=== PATIENT | male | born 1970 | race Two or more races ===

== ENCOUNTER 2017-03-07 13:04 | Emergency (ER) | payer OTHER ==
--- NOTE | 2017-03-07 13:09 | PDOC ---
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 Patient states cough is been present for the past week. Cough non productive (no hemoptysis) No chest pain No fevers or chills No recent travel No ill contacts PMH: HTN, PSH: Denies Meds: Atenolol, Kdur, Vitamin D3 ALL: NKDA Social: denies alcohol, drugs, cigarettes GENERAL/CONSTITUTIONAL: No: fever, chills, weakness, loss of appetite. HEAD, EYES, EARS, NOSE AND THROAT: No: change in vision, ear pain, discharge, sore throat, throat swelling. CARDIOVASCULAR: No: chest pain, lightheadedness, palpitations, syncope RESPIRATORY: Yes: cough, No: shortness of breath, wheezing, hemoptysis, stridor. GASTROINTESTINAL: No: nausea, vomiting, diarrhea, abdominal pain GENITOURINARY: No: dysuria, hematuria, frequency, urgency, flank pain. MUSCULOSKELETAL: No: back pain, neck pain, joint pain, muscle swelling or pain SKIN: No: lesions, pallor, rash or easy bruising. NEUROLOGIC: No: headache, vertigo, paresthesias, weakness ENDOCRINE: No: unexplained weight gain or loss HEMATOLOGIC/LYMPHATIC: No: anemia, easy bleeding, swelling nodes. GENERAL: The patient is in no acute distress. HEAD: Normal with no signs of trauma. EYES: PERRLA, EOMI, sclera anicteric, conjunctiva clear. ENT: Ears normal, nares patent, oropharynx clear without exudates. Moist mucous membranes. NECK: Normal range of motion, supple without lymphadenopathy, JVD, or masses. LUNGS: Breath sounds equal, clear to auscultation bilaterally. No wheezes, and no crackles. HEART:Regular rate and rhythm, normal S1 and S2 without murmur, rub or gallop. ABDOMEN: Soft, nontender, normoactive bowel sounds. No guarding, no rebound. No masses palpable. EXTREMITIES: Normal range of motion, no edema. No clubbing or cyanosis. No erythema, or tenderness. NEUROLOGICAL: Cranial nerves II through XII grossly intact. Normal speech. No focal neurological deficits. MUSCULOSKELETAL: Back non-tender to palpation, no CVA tenderness SKIN: Warm, Dry, normal turgor, no rashes or lesions noted. Past History - Past Medical History Allergies/Adverse Reactions: Allergies Allergy/AdvReac Type Severity Reaction Status Date / Time No Known Allergies Allergy Verified 03/07/17 13:05 Home Medications: Ambulatory Orders Atenolol [Tenormin -] 50 mg PO DAILY 03/07/17 Atenolol [Tenormin] 50 mg PO DAILY #30 tablet 03/07/17 Azithromycin [Zithromax 250mg Tablets -] 250 mg PO UTDICT #6 tab 03/07/17 Cholecalciferol (Vitamin D3) [Vitamin D3] 50,000 unit PO DAILY #30 capsule 03/07 Cholecalciferol (Vitamin D3) [Vitamin D3] 50,000 unit PO WEEKLY 03/07/17 Potassium Chloride [K-Dur -] 20 meq PO DAILY 03/07/17 Potassium Chloride [K-Dur -] 20 meq PO DAILY #30 tablet.er 03/07/17 HTN: Yes - Immunization History Td Vaccination: Yes (07/08/2012) - Psycho/Social/Smoking Cessation Hx Anxiety: No Suicidal Ideation: No Smoking Status: No Smoking History: Never smoked Number of Cigarettes Smoked Daily: 0 Hx Alcohol Use: No Drug/Substance Use Hx: No Substance Use Type: None Hx Substance Use Treatment: No Medical Decision Making - Medical Decision Making 03/07/17 14:11 Lungs clear Pt is not immunosuppressed CXR 03/07/17 14:18 CXR: negative Will discharge to home Will give Azithromycin Pt asked me to refil his home medications *DC/Admit/Observation/Transfer Diagnosis at time of Disposition: Cough - Discharge Dispostion Disposition: HOME Condition at time of disposition: Stable Admit: No - Prescriptions Prescriptions: Potassium Chloride [K-Dur -] 20 meq PO DAILY #30 tablet.er Atenolol [Tenormin] 50 mg PO DAILY #30 tablet Cholecalciferol (Vitamin D3) [Vitamin D3] 50,000 unit PO DAILY #30 capsule Azithromycin [Zithromax 250mg Tablets -] 250 mg PO UTDICT #6 tab - Patient Instructions Printed Discharge Instructions: DI for Viral Upper Respiratory Infection -- Adult Additional Instructions: Thank you for coming in to the ER today Please take antibiotics as prescribed Return to the ER or any fevers or chills, any shortness of breath, any chest pain, any other concerns or complaints - Post Discharge Activity Work/School Note: Back to Work
[2017-03-07 13:12] VITALS: BP 141/100; PULSE 98; TEMP 99.4; BMI 25.8
== END 2017-03-07 14:27 | disposition home or self-care (01) ==
LOC: FER 13:04
DX: R05 Cough (principal); I10 Essential (primary) hypertension; Z85.89 Personal history of malignant neoplasm of other organs and systems
CPT/HCPCS: 71020-TC; 99282-25

== ENCOUNTER 2018-12-17 16:40 | Emergency (ER) | payer OTHER ==
[2018-12-17 16:53] VITALS: BP 130/85; TEMP 98.9; BMI 27.3
--- NOTE | 2018-12-17 17:05 | PDOC ---
History of Present Illness - History of Present Illness Initial Comments: 12/17/18 17:06 The patient is a 48 year old male with a past medical history of nasopharyngeal carcinoma in remission, borderline hypertension, and hyperlipidemia who presents to the emergency department for evaluation of worsening cough and body aches since Sunday. The patient reports worsening productive cough with clear sputum since Sunday. Patient reports intermittent episodes of body aches and lethargy since Sunday. He reports associated symptoms of subjective fever/chills , body aches, and palpitations only upon coughing. Patient is a registered nurse at [employer]. The patient denies chest pain, shortness of breath, wheezing,headache, and dizziness. Denies nausea, vomiting, constipation, and diarrhea. Allergies: No known drug allergies Social history: No reported cigarette, alcohol, or drug use. Surgical History: cataract with iol PCP: Dr. Familia Leigh <Bill Sam - Last Filed: 12/17/18 17:06> - General History Source: Patient Exam Limitations: No Limitations <Capo Holland - Last Filed: 12/17/18 18:04> - General Chief Complaint: Respiratory Stated Complaint: COUGH & COLD SX Time Seen by Provider: 12/17/18 16:41 Past History <Bill Sam - Last Filed: 12/17/18 17:06> - Past Medical History Cancer: Yes (NASOPAHRENGEAL) HTN: Yes - Immunization History Td Vaccination: Yes (07/08/2012) - Suicide/Smoking/Psychosocial Hx Smoking Status: No Smoking History: Never smoked Have you smoked in the past 12 months: No Number of Cigarettes Smoked Daily: 0 Hx Alcohol Use: No Drug/Substance Use Hx: No Substance Use Type: None Hx Substance Use Treatment: No <Capo Holland - Last Filed: 12/17/18 18:04> - Past Medical History Allergies/Adverse Reactions: Allergies Allergy/AdvReac Type Severity Reaction Status Date / Time No Known Allergies Allergy Verified 03/07/17 13:05 Home Medications: Ambulatory Orders Metoprolol Tartrate [Lopressor] 50 mg PO DAILY 12/17/18 Oseltamivir Phosphate [Tamiflu] 75 mg PO BID #10 capsule 12/17/18 Review of Systems - Review of Systems Comments:: GENERAL/CONSTITUTIONAL: (+)Subjective fever. (+)chills. No weakness. HEAD, EYES, EARS, NOSE AND THROAT: No change in vision. No ear pain or discharge. No sore throat. CARDIOVASCULAR: (+)Palpitations. No chest pain or shortness of breath. RESPIRATORY: (+)productive cough. No wheezing, or hemoptysis. GASTROINTESTINAL: No nausea, vomiting, diarrhea or constipation. GENITOURINARY: No dysuria, frequency, or change in urination. MUSCULOSKELETAL: (+)body aches. No joint or muscle swelling or pain. No neck or back pain. SKIN: No rash NEUROLOGIC: No headache, vertigo, loss of consciousness, or change in strength/ sensation. ENDOCRINE: No increased thirst. No abnormal weight change. HEMATOLOGIC/LYMPHATIC: No anemia, easy bleeding, or history of blood clots. ALLERGIC/IMMUNOLOGIC: No hives or skin allergy. <Bill Sam - Last Filed: 12/17/18 17:06> *Physical Exam - Vital Signs Last Vital Signs Temp Pulse Resp BP Pulse Ox 98.9 F 112 H 20 130/85 98 12/17/18 16:40 12/17/18 16:40 12/17/18 16:40 12/17/18 16:40 12/17/18 16:40 - Physical Exam Comments: GENERAL: Awake, alert, and fully oriented, in no acute distress HEAD: No signs of trauma EYES: PERRLA, EOMI, sclera anicteric, conjunctiva clear NECK: Normal ROM, supple, no JVD, or masses LUNGS: Breath sounds equal, clear to auscultation bilaterally. No wheezes, and no crackles HEART: Regular rate and rhythm, normal S1 and S2, no murmurs, rubs or gallops EXTREMITIES: Normal range of motion, no edema. No clubbing or cyanosis. No cords, erythema, or tenderness NEUROLOGICAL: Cranial nerves II through XII grossly intact. Normal speech, normal gait SKIN: Warm, Dry, normal turgor, no rashes or lesions noted. <Bill Sam - Last Filed: 12/17/18 17:06> Moderate Sedation - Procedure Monitoring Vital Signs: Procedure Monitoring Vital Signs Temperature 98.9 F 12/17/18 16:40 Pulse Rate 112 H 12/17/18 16:40 Respiratory Rate 20 12/17/18 16:40 Blood Pressure 130/85 12/17/18 16:40 O2 Sat by Pulse Oximetry (%) 98 12/17/18 16:40 <FlacoBill - Last Filed: 12/17/18 17:06> Heart Score/ECG Review #1 ECG reviewed & interpreted by me at: 17:00 12/17/18 17:05 NSR 96, no std/kimi, TWI III, normal axis, normal intervals, QTC 424 msec. normal EKG <Capo Holland - Last Filed: 12/17/18 18:04> ED Treatment Course - LABORATORY CBC & Chemistry Diagram: 12/17/18 17:10 12/17/18 17:10 <Capo Holland - Last Filed: 12/17/18 18:04> Medical Decision Making - Medical Decision Making 12/17/18 16:52 A portion of this note was written by my scribe, under my supervision. 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 Pt endorses cough, mild productive sputum, occasional chills, but no fevers. Has reported general malaise. 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 May have had sick contacts. Denies chest pain. Pt concerned for potential influenza. Also reports incidentally of intermittent palpitations for some times, but declines chest pain palpitations now. Will need to r/o influenza. Differential includes viral syndrome. No need for chest xray at this time given lung sounds clear. Will however send labs including TSH and ECG for intermittent palpitations and have patient referred to a display artist. 12/17/18 18:04 CBC, BMP 12/17/18 17:10 12/17/18 17:10 CMP Sodium 137 mmol/L (136-145) 12/17/18 17:10 Potassium 3.6 mmol/L (3.5-5.1) 12/17/18 17:10 Chloride 102 mmol/L (98-107) 12/17/18 17:10 Carbon Dioxide 27 mmol/L (21-32) 12/17/18 17:10 Anion Gap 8 MMOL/L (8-16) 12/17/18 17:10 BUN 11 mg/dl (7-18) 12/17/18 17:10 Creatinine 0.9 mg/dl (0.55-1.3) 12/17/18 17:10 Creat Clearance w eGFR > 60 (>60) 12/17/18 17:10 Random Glucose 148 mg/dl (74-106) H 12/17/18 17:10 Calcium 8.4 mg/dl (8.5-10) L 12/17/18 17:10 Total Bilirubin 0.5 mg/dl (0.2-1) 12/17/18 17:10 AST 29 U/L (15-37) 12/17/18 17:10 ALT 41 U/L (13-61) 12/17/18 17:10 Alkaline Phosphatase 89 U/L (45-117) 12/17/18 17:10 Total Protein 6.6 g/dl (6.4-8.2) 12/17/18 17:10 Albumin 3.6 g/dl (3.4-5.0) 12/17/18 17:10 Influenza swab pending. However, will have patient call back for the influenza and TSh results. <Capo Holland - Last Filed: 12/17/18 18:04> *DC/Admit/Observation/Transfer - Attestations Scribe Attestion: Documentation prepared by Bill Sam, acting as medical assistant for Capo Holland MD. <Bill Sam - Last Filed: 12/17/18 17:06> - Discharge Dispostion Decision to Admit order: No <Capo Holland - Last Filed: 12/17/18 18:04> Diagnosis at time of Disposition: Cough - Discharge Dispostion Condition at time of disposition: Stable - Prescriptions Prescriptions: Oseltamivir Phosphate [Tamiflu] 75 mg PO BID #10 capsule - Referrals Referrals: Familia Leigh MD [Primary Care Provider] - Timothy Orozco MD [Staff Physician] - - Patient Instructions Printed Discharge Instructions: DI for Cough -- Adult, DI for Palpitations Additional Instructions: Please call back to the ER for the results of your influenza and TSH. Call at [phone]. If your influenza is positive, please start taking the tamiflu. Otherwise, drink plenty of fluids and rest. For your intermittent palpitations, please make an appointment with cardiology. - Post Discharge Activity
[2018-12-17 17:32] LABS: HEMOGLOBIN 12.9 GM/dl (11.7-16.9); MCH 26.9 pg (25.7-33.7); MCHC 32.3 g/dl (32.0-35.9); MEAN CELL VOLUME 83.3 fl (80-96); MEAN PLT VOLUME 7.6 fl (7.5-11.1); PLATELET COUNT 199 K/MM3 (134-434); RBC 4.81 M/mm3 (4.00-5.60); RDW 12.6 % (11.9-15.9); WHITE BLOOD COUNT 3.6 K/mm3 (4.0-10.8)
[2018-12-17 17:47] LABS: ALBUMIN 3.6 g/dl (3.4-5.0); ALK PHOS 89 U/L (45-117); ANION GAP 8 MMOL/L (8-16); BILIRUBIN,TOTAL 0.5 mg/dl (0.2-1); BLOOD UREA NITROGEN 11 mg/dl (7-18); CALCIUM 8.4 mg/dl (8.5-10); CHLORIDE 102 mmol/L (98-107); CO2 27 mmol/L (21-32); CREATININE 0.9 mg/dl (0.55-1.3); GLUCOSE,RANDOM 148 mg/dl (74-106); POTASSIUM 3.6 mmol/L (3.5-5.1); SGOT/AST 29 U/L (15-37); SGPT/ALT 41 U/L (13-61); SODIUM 137 mmol/L (136-145); TOT PROT 6.6 g/dl (6.4-8.2)
[2018-12-17 18:35] VITALS: PULSE 93
[2018-12-17 19:18] LABS: PLATELET ESTIMATE ADEQUATE
--- NOTE | 2018-12-18 11:36 | EKG ---
Test Reason : Blood Pressure : / mmHG Vent. Rate : 096 BPM Atrial Rate : 096 BPM P-R Int : 152 ms QRS Dur : 088 ms QT Int : 336 ms P-R-T Axes : 024 058 005 degrees QTc Int : 424 ms NORMAL SINUS RHYTHM NORMAL ECG NO PREVIOUS ECGS AVAILABLE Confirmed by ZORAIDA SANCHES MD ([id number]) on 12/18/2018 11:36:09 AM Referred By: DR TSE Confirmed By:ZORAIDA SANCHES MD
== END 2018-12-17 18:10 | disposition home or self-care (01) ==
LOC: FER 16:40
DX: R05 Cough (principal); I10 Essential (primary) hypertension; E78.5 Hyperlipidemia, unspecified; Z85.818 Personal history of malignant neoplasm of other sites of lip, oral cavity, and pharynx
CPT/HCPCS: 36415; 80053; 84443; 85025; 87804; 93005; 99283-25

== ENCOUNTER 2019-08-25 13:33 | Emergency (ER) | payer OTHER ==
[2019-08-25 14:04] VITALS: TEMP 97.8; BMI 25.8
[2019-08-25] MEDS ORDERED: IBUPROFEN 400 MG TABLET (FP) PO ONE ×2 (14:29→14:36)
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
[2019-08-25 15:04] VITALS: BP 146/104; PULSE 82
== END 2019-08-25 15:05 | disposition home or self-care (01) ==
LOC: FER 13:33
DX: S70.02XA Contusion of left hip, initial encounter (principal); V43.52XA Car driver injured in collision with other type car in traffic accident, initial encounter; Y93.89 Activity, other specified; Y92.410 Unspecified street and highway as the place of occurrence of the external cause; I10 Essential (primary) hypertension; E78.00 Pure hypercholesterolemia, unspecified; J45.909 Unspecified asthma, uncomplicated; Z85.89 Personal history of malignant neoplasm of other organs and systems
CPT/HCPCS: 71046-TC-FY; 73523-TC-FY; 99284-25

== ENCOUNTER 2020-10-21 10:54 | Emergency (ER) | payer OTHER ==
[2020-10-21 11:12] VITALS: TEMP 98.8; BMI 25.8
[2020-10-21] MEDS ORDERED: METOCLOPRAMIDE HCL INJECTION 10 MG/2 ML VIAL IVPUSH ONE (11:26)
[2020-10-21] MEDS ORDERED: ACETAMINOPHEN 1000 MG/100 ML VIAL (NON FORMULARY) IVPB ONE (11:26)
[2020-10-21] MEDS ORDERED: METOCLOPRAMIDE HCL INJECTION 10 MG/2 ML VIAL ONE (11:33)
[2020-10-21] MEDS ORDERED: ACETAMINOPHEN INJECTION 100 ML IVPB ONE (11:33)
[2020-10-21 12:05] LABS: BASO % 1.4 % (0-2.0); EOS % 1.2 % (0-4.5); HEMATOCRIT 46.6 % (35.4-49); HEMOGLOBIN 14.9 GM/dl (11.7-16.9); LYMPH % 24.9 % (8-40); MCH 26.9 pg (25.7-33.7); MCHC 31.9 g/dl (32.0-35.9); MEAN CELL VOLUME 84.4 fl (80-96); MEAN PLT VOLUME 7.4 fl (7.5-11.1); MONO % 8.1 % (3.8-10.2); NEUT % 64.4 % (42.8-82.8); PLATELET COUNT 265 K/MM3 (134-434); RBC 5.52 M/mm3 (4.00-5.60); RDW 12.5 % (11.9-15.9); WHITE BLOOD COUNT 4.3 K/mm3 (4.0-10.8)
[2020-10-21 12:26] LABS: EPITHELIAL CELLS RARE /hpf
[2020-10-21 12:31] LABS: ALBUMIN 4.3 g/dl (3.4-5.0); BILIRUBIN,TOTAL 0.8 mg/dl (0.2-1); CALCIUM 8.8 mg/dl (8.5-10); CREATININE 0.9 mg/dl (0.55-1.3); POTASSIUM 3.8 mmol/L (3.5-5.1); TOT PROT 7.7 g/dl (6.4-8.2)
[2020-10-21 13:12] VITALS: BP 145/90; PULSE 75
== END 2020-10-21 13:27 | disposition home or self-care (01) ==
LOC: FER 10:54
PROC: 3E033NZ Introduction of Analgesics, Hypnotics, Sedatives into Peripheral Vein, Percutaneous Approach (ICD-10-PCS; principal; 2020-10-21)
PROC: 3E033GC Introduction of Other Therapeutic Substance into Peripheral Vein, Percutaneous Approach (ICD-10-PCS; 2020-10-21)
DX: R00.2 Palpitations (principal); R51.9 Headache, unspecified
CPT/HCPCS: 36415; 70450-TC; 71046-TC-FY; 80053; 81003; 81015; 84484; 85025; 93005; 99285-25; J0131

== ENCOUNTER 2021-09-05 15:50 | Emergency (ER) | payer BC, OTHER ==
[2021-09-05 15:59] VITALS: TEMP 99.3; BMI 26.3
[2021-09-05] MEDS ORDERED: SODIUM CHLORIDE 1,000 ML IV STA (16:08)
[2021-09-05 16:35] LABS: BASO % 3.3 % (0-2.0); EOS % 0.3 % (0-4.5); HEMATOCRIT 44.2 % (35.4-49); HEMOGLOBIN 14.8 GM/dl (11.7-16.9); LYMPH % 14.9 % (8-40); MCH 27.2 pg (25.7-33.7); MCHC 33.5 g/dl (32.0-35.9); MEAN CELL VOLUME 81.2 fl (80-96); MEAN PLT VOLUME 7.4 fl (7.5-11.1); MONO % 6.4 % (3.8-10.2); NEUT % 75.1 % (42.8-82.8); PLATELET COUNT 300 10^3/uL (134-434); RBC 5.45 M/mm3 (4.00-5.60); RDW 11.9 % (11.9-15.9); WHITE BLOOD COUNT 4.8 K/mm3 (4.0-10.8)
[2021-09-05 16:41] LABS: ALBUMIN 4.3 g/dl (3.4-5.0); BILIRUBIN,TOTAL 0.8 mg/dl (0.2-1); CALCIUM 8.9 mg/dl (8.5-10); CREATININE 0.8 mg/dl (0.55-1.3); TOT PROT 8.2 g/dl (6.4-8.2)
[2021-09-05 18:57] VITALS: BP 159/109; PULSE 97
== END 2021-09-05 20:50 | disposition home or self-care (01) ==
LOC: FER 15:50
PROC: 3E0337Z Introduction of Electrolytic and Water Balance Substance into Peripheral Vein, Percutaneous Approach (ICD-10-PCS; principal; 2021-09-05)
DX: R00.0 Tachycardia, unspecified (principal)
CPT/HCPCS: 36415; 71275-TC; 80053; 84443; 85025; 85379; 93005; 99285-25; Q9967

== ENCOUNTER 2022-09-23 15:10 | Emergency (ER) | payer BC ==
[2022-09-23 15:22] VITALS: BP 156/90; PULSE 86; RESP 20; TEMP 99; BMI 25.8
[2022-09-23] MEDS ORDERED: IBUPROFEN 400 MG TABLET (FP) PO ONE ×2 (15:40→15:47)
[2022-09-23 17:22] LABS: THROAT:GRP A STREP NOT DETECTED (NOTDETECTED)
== END 2022-09-23 16:01 | disposition home or self-care (01) ==
LOC: FER 15:10
DX: R09.81 Nasal congestion (principal); R05.1 Acute cough; J02.9 Acute pharyngitis, unspecified
CPT/HCPCS: 0241U-QW; 87651; 99283-25

== ENCOUNTER 2023-07-28 00:43 | Emergency (ER) | payer BC ==
[2023-07-28 00:55] VITALS: PULSE 68; RESP 16; TEMP 98.1; BMI 25.9
[2023-07-28] MEDS ORDERED: morphine CARPU-JECT 2 MG/1 ML DISP.SYRIN IVPUSH ONE (01:08)
[2023-07-28] MEDS ORDERED: SODIUM CHLORIDE 1,000 ML IV ONE (01:08)
[2023-07-28] MEDS ORDERED: KETOROLAC TROMETHAMINE 30 MG/1 ML VIAL IVPUSH ONE (01:08)
[2023-07-28] MEDS ORDERED: KETOROLAC TROMETHAMINE 30 MG/1 ML VIAL ONE (01:11)
[2023-07-28] MEDS ORDERED: morphine SULFATE 4 MG/ML VIAL ONE (01:11)
[2023-07-28 02:10] LABS: HEMATOCRIT 39.7 % (35.4-49); HEMOGLOBIN 13.4 GM/dL (11.7-16.9); MCHC 33.9 g/dl (32.0-35.9); MEAN CELL VOLUME 79.8 fl (80-96); MEAN PLT VOLUME 7.5 fl (7.5-11.1); PLATELET COUNT 225 10^3/uL (134-434); RBC 4.97 M/mm3 (4.00-5.60); RDW 13.6 % (11.9-15.9); WHITE BLOOD COUNT 8.4 K/mm3 (4.0-10.0)
[2023-07-28 02:16] LABS: EPI CELLS 0 /uL (0-25.1); HYALINE CASTS 0 /uL (0-3.1); PH,URINE 6.5 (5.0-8.0); URINE APPEARANCE CLEAR; URINE BACTERIA 0 /uL (0-1359); URINE BILIRUBIN NEGATIVE (NEGATIVE); URINE COLOR YELLOW; URINE GLUCOSE (UA) NEGATIVE (NEGATIVE); URINE KETONE NEGATIVE (NEGATIVE); URINE LEUK ESTERASE NEGATIVE (NEGATIVE); URINE NITRITE NEGATIVE (NEGATIVE); URINE PROTEIN TRACE (NEGATIVE); URINE RBC 27 /uL (0-23.9); URINE UROBILINOGEN 0.2 mg/dL (0.2-1.0); URINE WBC 1 /uL (0-25.8)
[2023-07-28 02:29] VITALS: BP 165/107
[2023-07-28 02:34] LABS: POTASSIUM 3.3 mmol/L (3.5-5.1)
[2023-07-28 02:36] LABS: CALCIUM 8.9 mg/dL (8.5-10.1)
[2023-07-28 02:38] LABS: ALBUMIN 4.2 g/dl (3.4-5.0); BLOOD UREA NITROGEN 10.2 mg/dL (7-18)
[2023-07-28 02:40] LABS: CREATININE 0.9 mg/dL (0.55-1.3)
[2023-07-28 02:42] LABS: BILIRUBIN,TOTAL 0.4 mg/dL (0.2-1); TOT PROT 7.8 g/dl (6.4-8.2)
[2023-07-28] MEDS ORDERED: FAMOTIDINE 20 MG TABLET PO ONE (03:01)
[2023-07-28] MEDS ORDERED: FAMOTIDINE 20 MG/50 ML IVPB 20 MG/50 ML MG IVPB ONE ×2 (03:10)
[2023-07-28] MEDS ORDERED: POTASSIUM CHLORIDE TABS 20 MEQ TABLET.ER (FP) PO ONE ×2 (03:18→03:21)
== END 2023-07-28 06:15 | disposition home or self-care (01) ==
LOC: FER 00:43
PROC: 3E033GC Introduction of Other Therapeutic Substance into Peripheral Vein, Percutaneous Approach (ICD-10-PCS; principal; 2023-07-28)
PROC: 3E033GC Introduction of Other Therapeutic Substance into Peripheral Vein, Percutaneous Approach (ICD-10-PCS; 2023-07-28)
PROC: 3E033GC Introduction of Other Therapeutic Substance into Peripheral Vein, Percutaneous Approach (ICD-10-PCS; 2023-07-28)
PROC: 3E0337Z Introduction of Electrolytic and Water Balance Substance into Peripheral Vein, Percutaneous Approach (ICD-10-PCS; 2023-07-28)
DX: R10.13 Epigastric pain (principal); R10.11 Right upper quadrant pain
CPT/HCPCS: 36415; 76705-TC; 80053; 81003; 82550; 82553; 84484; 85027; 93005; 99285-25